=== PATIENT | male | born 1980 | race Caucasian/White ===

== ENCOUNTER 2017-09-23 17:58 | Emergency (ER) | payer OTHER ==
[~2017-09-23] VITALS: Ht 182.9 cm; Wt 75.0 kg
[2017-09-23 18:00] VITALS: TEMP 98.6
[2017-09-23 18:48] LABS: BASO # 0.1 (0.0-0.2); BASO % 0.4 % (0.0-2.0); EOS % 0.2 % (0-4.0); GRAN # 9.8 (1.4-6.5); GRAN % 78.6 % (42.2-75.2); HEMOGLOBIN 12.8 g/dl (13.5-18.0); LYMPH # 1.8 (1.2-3.4); LYMPH % 14.8 % (20.0-51.0); MEAN CELL VOLUME 90 fl (80.0-100.0); MEAN CORPUSCULAR HEMOGLOBIN 33 pg (27.0-31.0); MEAN CORPUSCULAR HGB CONC 36 g/dl (33.0-37.0); MEAN PLATELET VOLUME 11.5 fl (7.4-10.4); MONO # 0.7 (0.1-0.6); MONO % 5.5 % (1.7-9.3); PLATELET COUNT 245 K/mm3 (130-400); RED BLOOD COUNT 3.94 M/mm3 (4.20-5.60)
[2017-09-23 18:52] LABS: HEMATOCRIT 35.4 % (42.0-52.0)
[2017-09-23 19:01] LABS: CALCIUM 9.4 mg/dL (8.4-10.2); CREATININE, serum 0.89 mg/dL (0.66-1.25); POTASSIUM 4.2 mmol/L (3.4-5.0)
[2017-09-23 21:38] VITALS: BP 104/42; PULSE 94
== END 2017-09-23 21:38 | disposition home or self-care (01) ==
LOC: COL.ER 17:58
PROVIDERS: Emergency Medicine
DX: K64.9 Unspecified hemorrhoids (principal); Z80.0 Family history of malignant neoplasm of digestive organs; Z98.890 Other specified postprocedural states
CPT/HCPCS: J7030

== ENCOUNTER 2017-10-01 04:49 | Inpatient (IN) | payer OTHER ==
[~2017-10-01] VITALS: Ht 182.9 cm; Wt 74.7 kg
[2017-10-01] VITALS (555 sets, daily range): BP systolic 90–107; BP diastolic 35–66; PULSE 83–100; TEMP 97.3–98.8; O2SAT 96–100
[2017-10-01 05:26] LABS: BASO # 0.1 (0.0-0.2); BASO % 0.4 % (0.0-2.0); EOS % 0.2 % (0-4.0); GRAN # 14.7 (1.4-6.5); GRAN % 77.1 % (42.2-75.2); HEMOGLOBIN 8.8 g/dl (13.5-18.0); LYMPH # 3.3 (1.2-3.4); LYMPH % 17.1 % (20.0-51.0); MEAN CELL VOLUME 94 fl (80.0-100.0); MEAN CORPUSCULAR HEMOGLOBIN 33 pg (27.0-31.0); MEAN CORPUSCULAR HGB CONC 35 g/dl (33.0-37.0); MONO # 0.9 (0.1-0.6); MONO % 4.5 % (1.7-9.3); PLATELET COUNT 294 K/mm3 (130-400); RED BLOOD COUNT 2.65 M/mm3 (4.20-5.60); REDCELL DISTRIBUTION WIDTH-CV 14.1 % (11.5-14.5)
[2017-10-01 05:45] LABS: BILIRUBIN,TOTAL 0.1 mg/dL (0.0-1.0); CALCIUM 8.6 mg/dL (8.4-10.2); CREATININE, serum 1.04 mg/dL (0.66-1.25); POTASSIUM 3.8 mmol/L (3.4-5.0); TOTAL PROTEIN 5.2 gm/dL (6.4-8.2)
[2017-10-01 06:20] LABS: INR 1.2 (0.8-3.0); PROTHROMBIN TIME 13.5 SECONDS (9.7-12.8)
[2017-10-01 06:23] LABS: PARTIAL THROMBOPLASTIN TIME 22.6 SECONDS (26.0-37.0)
[2017-10-01 10:45] LABS: HEMATOCRIT 19.3 % (42.0-52.0)
[2017-10-01 10:46] LABS: HEMOGLOBIN 6.7 g/dl (13.5-18.0)
[2017-10-01] MEDS ORDERED: IBU400 MG PO (12:54)
[2017-10-01 14:56] LABS: MUCOUS Present /lpf; PH 5 (5-8); SQUAMOUS EPITHELIAL 0-2 /hpf; URINE APPEARANCE Clear; URINE BACTERIA None Seen /hpf; URINE BILIRUBIN Negative (NEGATIVE); URINE BLOOD Negative (NEGATIVE); URINE COLOR Straw; URINE GLUCOSE Negative (NEGATIVE); URINE KETONE Negative (NEGATIVE); URINE LEUKOCYTE ESTERASE Negative (NEGATIVE); URINE NITRATE Negative (NEGATIVE); URINE PROTEIN(semi-quant) Negative (NEGATIVE); URINE RBC None Seen /hpf; URINE UROBILINOGEN Negative (NEGATIVE)
[2017-10-01 15:14] LABS: COLLECTION METHOD CLEAN CATCH
[2017-10-01 19:45] LABS: HEMOGLOBIN 7.9 g/dl (13.5-18.0)
[2017-10-01 23:04] LABS: HEMATOCRIT 22.6 % (42.0-52.0); HEMOGLOBIN 7.9 g/dl (13.5-18.0)
[2017-10-02] VITALS (855 sets, daily range): BP systolic 95–109; BP diastolic 57–85; PULSE 64–88; TEMP 97.4–98.4; O2SAT 89–100
[2017-10-02 06:29] LABS: BASO % 0.2 % (0.0-2.0); EOS % 0.5 % (0-4.0); GRAN # 5.6 (1.4-6.5); LYMPH # 2.1 (1.2-3.4); LYMPH % 25.4 % (20.0-51.0); MEAN CELL VOLUME 93 fl (80.0-100.0); MEAN CORPUSCULAR HGB CONC 34 g/dl (33.0-37.0); MEAN PLATELET VOLUME 10.6 fl (7.4-10.4); MONO # 0.4 (0.1-0.6); MONO % 4.5 % (1.7-9.3); REDCELL DISTRIBUTION WIDTH-CV 16.1 % (11.5-14.5)
[2017-10-02 06:42] LABS: ALBUMIN 2.5 gm/dL (3.5-5.0); BILIRUBIN,TOTAL 0.4 mg/dL (0.0-1.0); CREATININE, serum 0.84 mg/dL (0.66-1.25); POTASSIUM 3.9 mmol/L (3.4-5.0); TOTAL PROTEIN 4.5 gm/dL (6.4-8.2)
[2017-10-02 06:48] LABS: INR 1.2 (0.8-3.0); PROTHROMBIN TIME 14.1 SECONDS (9.7-12.8)
[2017-10-02 06:58] LABS: HEMATOCRIT 22.4 % (42.0-52.0); HEMOGLOBIN 7.7 g/dl (13.5-18.0); MEAN CORPUSCULAR HEMOGLOBIN 32 pg (27.0-31.0); PLATELET COUNT 171 K/mm3 (130-400)
[2017-10-02] MEDS ORDERED: ADVIL200 MG PO (11:20)
[2017-10-02] MEDS ORDERED: MIRALAX PA17 GM/Dose PO (11:30)
[2017-10-03] VITALS (213 sets, daily range): BP systolic 96–108; BP diastolic 55–64; PULSE 77–93; TEMP 97.9–98.8; O2SAT 96–100
[2017-10-03 07:25] LABS: HEMATOCRIT 24.6 % (42.0-52.0); HEMOGLOBIN 8.5 g/dl (13.5-18.0)
[2017-10-04 00:25] VITALS: BP 97/53; PULSE 80; TEMP 98.2
[2017-10-04 04:01] VITALS: BP 89/53; PULSE 73; TEMP 98.2
[2017-10-04 08:24] VITALS: BP 103/60; PULSE 88; TEMP 98.3
[2017-10-04 12:52] VITALS: BP 113/66; PULSE 87; TEMP 98.4
[2017-10-04] MEDS ORDERED: AMOXICILLIN 8751 TAB PO (13:51)
== END 2017-10-04 14:00 | disposition home or self-care (01) | DRG 378 ==
LOC: COL.ER 04:49 → ICU 07:18 → MEDICAL 10-03 03:54
PROVIDERS: Emergency Medicine; Surgery
DX: K92.1 Melena (principal); D62 Acute posthemorrhagic anemia
CPT/HCPCS: J2405; J2543; J3010; J7030; P9016; Q9967

== ENCOUNTER → 2018-09-04 | Outpatient (REF) ==
[~2018-09-04] MED LIST: ADVIL200 MG PO; AMOXICILLIN 8751 TAB PO; IBU400 MG PO; MIRALAX PA17 GM/Dose PO
[2018-09-04 18:39] LABS: THYROID STIMULATING HORMONE 0.896 uIU/mL (0.465-4.680)
== END ==
LOC: ZLAB.WCH 17:45
PROVIDERS: Nurse Practitioner Family
DX: Z01.89 Encounter for other specified special examinations (principal)